=== PATIENT | male | born 2000 | race Caucasian/White ===

== ENCOUNTER 2025-08-03 12:46 | Emergency (ER) | payer OTHER, SELFPAY ==
--- OUTSIDE RECORDS SUMMARY | 2025-08-03 12:54 | XMS_ITS | Clinical Summary ---
Author Organization [facility] Address [address] [place] [address] Phone Care Team Providers Care Mutual Fund Analyst Name Role Phone Eliot Valdez MD Primary Care Provider Allergies No known active allergies Medications escitalopram oxalate (LEXAPRO) 10 mg tablet Take 1 (one) Tablet by mouth daily 30 Tablet 11 02/18/2025 Active Active Problems No known active problems Resolved Problems Problem Noted Date Diagnosed Date Resolved Date Left inguinal hernia 02/11/2023 023 Family History Medical History Relation Name Comments Diabetes Maternal grandfather No Known Problems Natural father No Known Problems Natural mother Relation Name Status Comments Maternal grandfather Natural father Alive Natural mother Alive Social History Tobacco Use Types Packs/Day Years Used Date Smoking Tobacco: Never Smokeless Tobacco: Never Tobacco Cessation:Counseling Given: Not Answered Alcohol Use Standard Drinks/Week Comments Yes 2 (1 standard drink = 0.6 oz pur e alcohol) PHQ-2 Answer Date Recorded Depression Risk (PHQ2 Score) Score 0-2 = Not likely to be at risk for depression, Score 3-6 = At risk for depression 1 09/28/2024 PHQ-9 Answer Date Recorded PHQ-9 Total Score > 1-4 Mini mal, 5-9 Mild, 10-14 Moderate, 15-19 Mod-Severe, 20-27 Severe 4 09/28/2024 Sex and Gender Information Value Date Recorded Sex Assigned at Not on file Legal Sex Male 11:05 AM EDT Gender Identity Not on file Sexual Orientation Not on file Last Filed Vital Signs Vital Sign Reading Time Taken Comments Blood Pressure 110/76 02/08/2025 12:27 PM EDT Pulse 74 02/08/2025 12:27 PM EDT Temperature 36.4 C (97.5 F) 02/08/2025 12:27 PM EDT Respiratory Rate 20 02/08/2025 12:27 PM EDT Oxygen Saturation 98% 02/08/2025 12:27 PM EDT Inhaled Oxygen Concentration - - Weight 98.2 kg (216 lb 9.6 oz) 02/08/2025 12:27 PM EDT Height 177.8 cm (5' 10 ) 02/08/2025 12:27 PM EDT Body Mass Index 31.08 02/08/2025 12:27 PM EDT Plan of Treatment Health Maintenance Due Date Last Done Comments HIV Screening 2000 HPV Vaccination (1 - Male 3- dose series) 2015 BMI followup 2018 Pneumococcal Vaccination (1 of 2 - PCV) 2019 08/09/2001, 04/21/2001 Lab-Lipid Screening 02/05/2021 Tdap/Td Vaccination (7 - Td or Tdap) 03/23/2022 03/23/2012, 04/09/2010, 04/13/2005, Additional history exists Lab-Diabetes Screening (Gluc ose or HgA1c) 01/28/2023 Influenza Vaccination (#1) 2025 COVID-19 Vaccine (1 - 2024-2 6 season) 2025 Depression Screening 09/28/2025 09/28/2024 Well Visit 09/28/2025 09/28/2024, 03/08, 03/29/2013, Additional history exists Hepatitis B Vaccination Completed 04/21/20, 2000, 2000, Additional history exists Medical Devices Implanted Type Area Grain Operations Manager Device Identifier Shelf Expiration Date Model / Serial / Lot Mesh Hernia 3dmax Lite Lft Lg 4.1 X 6.2in Implanted:Qty: 1 on 02/17/2023 by William Hamilton MD at [facility] Left: Inguinal [employer] 08/03/2027 [id number] / / [id number] Insurance [facility] [place] [id number] [employer] Care Teams Mutual Fund Analyst Relationship Specialty Start Date End Date Eliot Valdez MD [address] [place] [address] PCP - General Family Medicine 01/28/21
[2025-08-03 12:57] VITALS: BP 135/85; PULSE 100; RESP 16; TEMP 36.6; O2SAT 98; BMI 30.1
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
[2025-08-03] MEDS: HYDROcodone-acetaminophen 5-325 mg Tablet 1 TAB PO (13:20)
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
[2025-08-03 13:34] VITALS: BP 124/79; PULSE 92; O2SAT 98
[2025-08-03 13:52] VITALS: BP 124/79; PULSE 83; O2SAT 98
== END 2025-08-03 13:53 | disposition home or self-care (01) ==
PROVIDERS: Emergency Provider Emergency Medicine
DX: S09.8XXA Other specified injuries of head, initial encounter (principal); V86.69XA Passenger of other special all-terrain or other off-road motor vehicle injured in nontraffic accident, initial encounter
CPT/HCPCS: 70450; 99284; J9999